=== PATIENT | female | born 2000 | race Hispanic/Latino ===

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

== ENCOUNTER 2023-07-06 11:46 | Emergency (ER) | payer BC, MEDICAID ==
[~2023-07-06] VITALS: Ht 157.5 cm; Wt 103.9 kg
[2023-07-06] MEDS: ACETAMINOPHEN 500 MG TABLET PO ONE (12:10)
[2023-07-06 12:36] LABS: RAPID GROUP A STREP negative (NEGATIVE)
[2023-07-06 12:46] LABS: INFLUENZA TYPE A Negative For Type A (NEGATIVE)
[2023-07-06 13:00] LABS: COVID19 (SARS ANTIGEN RAPID) POSITIVE FOR SARS AG (NEGATIVE); INFLUENZA TYPE B Positive For Type B (NEGATIVE)
[2023-07-06] MEDS ORDERED: OSEL75 PO (13:07)
[2023-07-06] MEDS ORDERED: BENZ-39 PO (13:07)
[2023-07-06 13:17] VITALS: BP 132/74; PULSE 92; RESP 18; O2SAT 100
== END 2023-07-06 13:33 | disposition home or self-care (01) ==
LOC: EDH 11:46
DX: U07.1 COVID-19 (principal); J10.1 Influenza due to other identified influenza virus with other respiratory manifestations; J45.909 Unspecified asthma, uncomplicated; Z88.0 Allergy status to penicillin; Z88.1 Allergy status to other antibiotic agents; Z88.8 Allergy status to other drugs, medicaments and biological substances
CPT/HCPCS: 87426; 87804; 87880